=== PATIENT | male | born 1995 | race Caucasian/White ===

== ENCOUNTER 2021-03-27 11:40 | Emergency (ER) | payer OTHER ==
[~2021-03-27] VITALS: Ht 182.8 cm; Wt 106.6 kg
[2021-03-27 12:04] VITALS: BP 134/79
[2021-03-27] MEDS ORDERED: CEPHALEXIN500 M1 PO (15:42)
== END 2021-03-27 15:50 | disposition home or self-care (01) ==
LOC: ED 11:40
DX: S62.511A Displaced fracture of proximal phalanx of right thumb, initial encounter for closed fracture (principal); W23.0XXA Caught, crushed, jammed, or pinched between moving objects, initial encounter; Y93.89 Activity, other specified; Y92.89 Other specified places as the place of occurrence of the external cause; Y99.8 Other external cause status

== ENCOUNTER → 2021-04-02 | Outpatient (CLI) | payer OTHER ==
[~2021-04-02] MED LIST: CEPHALEXIN500 M1 PO
== END | disposition home or self-care (01) ==
LOC: ORTHO 00:35
PROVIDERS: ATTEND Orthopaedic Surgery
DX: S62.514D Nondisplaced fracture of proximal phalanx of right thumb, subsequent encounter for fracture with routine healing (principal); X58.XXXD Exposure to other specified factors, subsequent encounter

== ENCOUNTER → 2021-04-09 | Outpatient (CLI) | payer OTHER | END | disposition home or self-care (01) | LOC: ORTHO 00:17 | PROVIDERS: ATTEND Orthopaedic Surgery | DX: S62.514D Nondisplaced fracture of proximal phalanx of right thumb, subsequent encounter for fracture with routine healing (principal); X58.XXXD Exposure to other specified factors, subsequent encounter ==

== ENCOUNTER → 2021-04-20 | Outpatient (CLI) | payer OTHER | END | disposition home or self-care (01) | LOC: ORTHO 00:26 | PROVIDERS: ATTEND Orthopaedic Surgery | DX: S62.514D Nondisplaced fracture of proximal phalanx of right thumb, subsequent encounter for fracture with routine healing (principal); M19.041 Primary osteoarthritis, right hand; X58.XXXD Exposure to other specified factors, subsequent encounter ==

== ENCOUNTER → 2023-12-05 | Outpatient (CLI) | payer BC | END | disposition home or self-care (01) | LOC: US 08:49 | PROVIDERS: ATTEND Internal Medicine | DX: K76.0 Fatty (change of) liver, not elsewhere classified (principal); K80.20 Calculus of gallbladder without cholecystitis without obstruction; R11.2 Nausea with vomiting, unspecified ==

== ENCOUNTER 2024-11-11 12:05 | Emergency (ER) | payer BC, OTHER ==
[~2024-11-11] VITALS: Wt 108.9 kg
[2024-11-11] MEDS ORDERED: OMEPRAZOLE40 MG PO (12:14)
[2024-11-11] MEDS ORDERED: PERCOCET 10-321 EACH PO (12:14)
[2024-11-11 12:15] VITALS: BP 129/68
[2024-11-11] MEDS ORDERED: PROMETHAZINE12.5 M5 PO (12:15)
[2024-11-11] MEDS ORDERED: methylPREDNISolone sod succ 1,000 MG/16 ML VIAL IM ONE (12:25)
[2024-11-11] MEDS ORDERED: Albuterol Sulf/Ipratropium 3 ML VIAL NEB ONE (12:25)
[2024-11-11] MEDS ORDERED: methylPREDNISolone sod succ 125 MG VIAL IM ONE (12:30)
[2024-11-11] MEDS ORDERED: Albuterol Sulfate 2.5 MG/3 ML VIAL NEB ONE (13:50)
[2024-11-11 14:03] LABS: BASO % 0.4 % (0.0-1.0); EOS # 0.5 10*3/uL (0.0-0.4); HEMATOCRIT 42.7 % (42.0-52.0); MEAN CORPUSCULAR HGB 31.8 pg (27.0-31.0); MEAN CORPUSCULAR HGB CONC 34.2 g/dl (33.0-37.0); MEAN PLATELET VOLUME 9.7 fl (9.6-12.3); MONO # 0.6 10*3/uL (0.1-1.0); MONO % 5.7 % (3.0-9.0); NEUT # 8.1 10*3/uL (2.3-7.9); NEUT % 74.7 % (47.0-73.0); PLATELET COUNT AUTOMATED 220 10*3/uL (130-400); RED BLOOD COUNT 4.59 10*6/uL (4.50-5.90); RED CELL DISTRI WIDTH 12.2 % (0-14.5); WHITE BLOOD COUNT 10.9 10*3/uL (4.8-10.8)
[2024-11-11 14:22] LABS: BUN 18 mg/dl (9-23); CHLORIDE 107 mmol/L (98-107)
[2024-11-11] MEDS ORDERED: VENT7GM INH (14:53)
[2024-11-11] MEDS ORDERED: AMOXICILLIN500 M3 PO (14:53)
[2024-11-11] MEDS ORDERED: MEDROL DOSEPAK4 MG PO (14:53)
== END 2024-11-11 15:04 | disposition home or self-care (01) ==
LOC: ED 12:05
PROVIDERS: Nurse Practitioner Family
DX: J22 Unspecified acute lower respiratory infection (principal); K21.9 Gastro-esophageal reflux disease without esophagitis; Z79.899 Other long term (current) drug therapy

== ENCOUNTER 2024-11-18 04:36 | Emergency (ER) | payer BC, OTHER ==
[~2024-11-18] VITALS: Ht 182.8 cm; Wt 108.9 kg
[~2024-11-18 04:36] MED LIST changes: +AMOXICILLIN500 M3 PO; +MEDROL DOSEPAK4 MG PO; +OMEPRAZOLE40 MG PO; +PERCOCET 10-321 EACH PO; +PROMETHAZINE12.5 M5 PO; +VENT7GM INH
[2024-11-18] MEDS ORDERED: ALBUTEROL HFA 90MCG INH (04:52)
[2024-11-18] MEDS ORDERED: AMOXICILLIN500 M2 PO (04:52)
[2024-11-18] MEDS ORDERED: Pantoprazole Sodium 40 MG VIAL IV ONE (05:35)
[2024-11-18] MEDS ORDERED: Metoclopramide Hydrochloride 10 MG/2 ML VIAL IV ONE (05:35)
[2024-11-18] MEDS ORDERED: HYDROmorphONE Hydrochloride 0.5 MG/0.5 ML SYRINGE IV ONE (06:05)
[2024-11-18 06:06] LABS: MEAN PLATELET VOLUME 9.7 fl (9.6-12.3)
[2024-11-18 06:09] LABS: HEMATOCRIT 48.6 % (42.0-52.0); MEAN CORPUSCULAR HGB 31.9 pg (27.0-31.0); MEAN CORPUSCULAR HGB CONC 35.4 g/dl (33.0-37.0); PLATELET COUNT AUTOMATED 329 10*3/uL (130-400); RED CELL DISTRI WIDTH 11.9 % (0-14.5); WHITE BLOOD COUNT 16.9 10*3/uL (4.8-10.8)
[2024-11-18 06:11] LABS: MANUAL DIFF REFLEX YES
[2024-11-18 06:14] LABS: ALKALINE PHOSPHATASE 75 U/L (46-116); BUN 19 mg/dl (9-23); CHLORIDE 102 mmol/L (98-107); LIPASE 31 U/L (12-53); POTASSIUM 3.3 mmol/L (3.4-5.1); SGPT/ALT 16 U/L (5-49); TOTAL PROTEIN 8.2 gm/dL (6.0-8.0)
[2024-11-18 06:32] LABS: PLATELET SUFFICIENCY NORMAL (NORMAL); TOTAL CELLS COUNTED 100 #CELLS
[2024-11-18 06:53] LABS: BILIRUBIN Negative (Negative); BLOOD Negative (Negative); CLARITY Clear (Clear); COLOR Yellow (Yellow); GLUCOSE Negative (Negative); KETONE Trace (Negative); LEUKO ESTERASE Negative (Negative); NITRITE Negative (Negative); PH 5.5 (4.5-8.0); SPECIFIC GRAVITY 1.015 (1.001-1.030); UROBILINOGEN 0.2 E.U./dl (0.0-1.0)
[2024-11-18 07:00] LABS: URINE AMPHETAMINES Negative (1000ng/ml); URINE BARBITURATES Negative (200ng/ml); URINE BENZODIAZEPINES Negative (200ng/ml); URINE CANNABINOIDS (THC) Positive (50ng/ml); URINE COCAINE Negative (300ng/ml); URINE METHADONE Negative (300ng/ml); URINE OPIATES Positive (300ng/ml); URINE PHENCYCLIDINE Negative (25ng/ml)
[2024-11-18 07:01] LABS: BACTERIA 3+; CALCIUM OXALATE CRYSTALS Trace
[2024-11-18 08:45] VITALS: BP 162/100
[2024-11-18] MEDS ORDERED: Ondansetron4 MG PO (09:21)
[2024-11-18] MEDS ORDERED: REGLAN10 M1 PO (09:21)
== END 2024-11-18 09:28 | disposition home or self-care (01) ==
LOC: ED 04:36
PROVIDERS: Emergency Medicine
DX: A08.4 Viral intestinal infection, unspecified (principal); K80.20 Calculus of gallbladder without cholecystitis without obstruction; Z79.899 Other long term (current) drug therapy